=== PATIENT | male | born 1960 | race Caucasian/White ===

== ENCOUNTER 2016-08-01 16:21 | Inpatient (IN) | payer SELFPAY ==
--- NOTE | 2016-08-01 16:22 | EDPHY ---
H & P Time Seen by Provider: 08/01/16 16:22 HPI/ROS: CHIEF COMPLAINT: Vomiting blood HISTORY OF PRESENT ILLNESS: This 56-year-old man drinks alcohol daily and says that he probably drinks more than I should. He has had black stools for the past 3 days and then today was vomiting bright red blood and arrives by EMS with a heart rate of 110 and a blood pressure 100/60. He also has had multiple previous knee surgeries in takes ibuprofen daily. He has a little bit of dizziness. No chest pain or shortness of breath. No abdominal pain. No previous history of varices. 1st blood pressure in the emergency department a 69 systolic. REVIEW OF SYSTEMS: Eye: no change in vision ENT: no sore throat Cardiac: no chest pain or syncope Pulmonary: no cough or SOB Abdomen: HPI Musculoskeletal: no back pain Skin: no rash Neuro: no headache Constitutional: no fever : no urinary symptoms A comprehensive 10 point review of systems is otherwise negative aside from elements mentioned in the history of present illness. PAST MEDICAL HISTORY: Multiple knee surgeries, otherwise as above. Social history: Daily alcohol. Heavy smoker. at bedside at 4:30 p.m. General Appearance: Alert and conversant, cooperative. Eyes: Pale conjunctiva. ENT, Mouth: Normal mucous membranes. Respiratory: Normal respiratory effort, breath sounds equal, lungs are clear to auscultation. Cardiovascular: Regular rate and rhythm. Gastrointestinal: Abdomen is soft and non tender. Neurological: Alert and oriented x3. Normally conversant. Face symmetric, normal movement and sensation in all extremities. Skin: Warm and dry, no rashes. Musculoskeletal: No peripheral edema and no joint swelling. Psychiatric: Not agitated. Emergency Department course/MDM: 2 IVs, i-STAT to check hematocrit, type and screen, IV Protonix, IV normal saline 1 L, EKG. 1642: Initial hemoglobin and hematocrit is 9 and 27. Octreotide drip started empirically. Consult with Gastroenterology and hospitalist. 164: Discussed with Dr. Florentino Corral. 1652: Systolic blood pressure 80/3, plan for repeat hematocrit in 1 hour. DIXIE draper applied for hypothermia. 1726: 2nd hematocrit after some hydration is hemoglobin 12 7 and hematocrit 21 Blood transfusion discussed with the patient and consented. Hypotension, active bleeding, anemia. Constitutional: Initial Vital Signs Temperature (C) 34.3 C L 08/01/16 16:22 Heart Rate 84 08/01/16 16:22 Respiratory Rate 18 08/01/16 16:22 Blood Pressure 79/64 L 08/01/16 16:22 O2 Sat (%) 100 08/01/16 16:22 O2 Delivery Mode Nasal Cannula O2 (L/minute) 2 Allergies/Adverse Reactions: No Known Allergies Allergy (Unverified 08/01/16 16:50) Home Medications: Medication Instructions Recorded Aspirin [Aspirin 81mg (*)] 81 mg PO DAILY 08/01/16 Ibuprofen [Motrin (*)] 800 mg PO TID 08/01/16 Losartan Potassium [Cozaar 25 mg 12.5 mg PO DAILY 08/01/16 (*)] Medical Decision Making - Diagnostics EKG Interpretation: 12-lead EKG interpreted by me; official reading is in trace master. My interpretation is sinus rhythm, rate 81. No acute ischemic changes. Differential Diagnosis: Differential considered including but not limited to hemorrhoids, coagulopathy, upper GI bleed, lower GI bleed, gastroenteritis, ulcer, varices. Critical Care Time: Critical care time spent by me, Dr. Powers, exclusively with the care of this patient was 45 minutes, exclusive of PA or SHANK BURNISHER time and exclusive of separate procedures. The organ system at risk was Gastrointestinal, hemodynamic and I ordered IV Protonix, IV saline resuscitation, external active rewarming, multiple diagnostic studies, discussion with admitting hospitalist physician and plan consultant paper stacker, blood products; to stabilize the patient and prevent worsening of the patient's condition. - Data Points Laboratory Results: Laboratory Results 08/01/16 16:35 08/01/16 16:35 08/01/16 08/01/16 16:35 16:33 WBC 17.09 H 10^3/uL (3.80-9.50) RBC 2.63 L 10^6/uL (4.40-6.38) Hgb 8.7 L g/dL (13.7-17.5) POC Hgb 9.2 L gm/dL (14.5-17.3) Hct 25.6 L % (40.0-51.0) POC Hct 27 L % (42.8-50.6) MCV 97.3 fL (81.5-99.8) MCH 33.1 pg (27.9-34.1) MCHC 34.0 g/dL (32.4-36.7) RDW 13.8 % (11.5-15.2) Plt Count 345 10^3/uL (150-400) MPV 10.2 fL (8.7-11.7) Neut % (Auto) 79.0 H % (39.3-74.2) Lymph % (Auto) 13.5 L % (15.0-45.0) [place] % (Auto) 4.7 % (4.5-13.0) Eos % (Auto) 1.3 % (0.6-7.6) Baso % (Auto) 0.4 % (0.3-1.7) Nucleat RBC Rel Count 0.0 % (0.0-0.2) Absolute Neuts (auto) 13.48 H 10^3/uL (1.70-6.50) Absolute Lymphs (auto) 2.31 10^3/uL (1.00-3.00) Absolute Monos (auto) 0.81 H 10^3/uL (0.30-0.80) Absolute Eos (auto) 0.23 10^3/uL (0.03-0.40) Absolute Basos (auto) 0.07 10^3/uL (0.02-0.10) Absolute Nucleated RBC 0.00 10^3/uL (0-0.01) Immature Gran % 1.1 % (0.0-1.1) Immature Gran # 0.19 H 10^3/uL (0.00-0.10) PT 13.9 SEC (12.0-15.0) INR 1.08 (0.83-1.16) APTT 21.8 L SEC (23.0-38.0) POC Sodium 138 mEq/L (134-144) Sodium 135 mEq/L (134-144) POC Potassium 4.1 mEq/L (3.3-5.0) Potassium 4.5 mEq/L (3.5-5.2) POC Chloride 105 mEq/L (96-108) Chloride 106 mEq/L (97-110) Carbon Dioxide 20 L mEq/l (22-31) Anion Gap 9 mEq/L (8-16) POC BUN 22 mg/dL (7-23) BUN 21 mg/dL (7-23) Creatinine 1.2 mg/dL (0.7-1.3) POC Creatinine 1.2 mg/dL (0.8-1.5) Estimated GFR > 60 Glucose 172 H mg/dL (70-100) POC Glucose 167 H mg/dL (70-100) Calcium 9.4 mg/dL (8.5-10.4) Total Bilirubin 0.6 mg/dL (0.1-1.4) Conjugated Bilirubin 0.4 mg/dL (0.0-0.5) Unconjugated Bilirubin 0.2 mg/dL (0.0-1.1) AST 39 IU/L (17-59) ALT 49 IU/L (21-72) Alkaline Phosphatase 66 IU/L (38-126) Total Protein 6.1 L g/dL (6.3-8.2) Albumin 3.6 g/dL (3.5-5.0) Ethyl Alcohol < 10 mg/dL (0-10) Patient ABO/Rh O POSITIVE Antibody Screen NEGATIVE Crossmatch IS Only See Detail Medications Given: Discontinued Medications Sodium Chloride (Ns) 1,000 mls @ 0 mls/hr IV ONCE ONE PRN Reason: Wide Open Stop: 08/01/16 16:30 Last Admin: 08/01/16 16:30 Dose: 1,000 mls Octreotide Acetate 500 mcg/ (Dextrose) 51 mls @ 5 mls/hr IV EDNOW ONE Stop: 08/02/16 02:53 Last Admin: 08/01/16 17:10 Dose: 51 mls Pantoprazole Sodium 40 mg/ (Sodium Chloride) 100 mls @ 200 mls/hr IV EDNOW ONE Stop: 08/01/16 17:16 Last Admin: 08/01/16 17:11 Dose: 100 mls Ondansetron HCl (Zofran) 4 mg IVP EDNOW ONE Stop: 08/01/16 16:49 Last Admin: 08/01/16 16:30 Dose: 4 mg Pantoprazole Sodium (Protonix) 40 mg IVP EDNOW ONE Stop: 08/01/16 16:48 Last Admin: 08/01/16 16:35 Dose: 40 mg Point of Care Test Results: 08/01/16 16:33 POC Sodium 138 POC Potassium 4.1 POC Chloride 105 POC BUN 22 POC Creatinine 1.2 POC Glucose 167 H Departure - Departure Disposition: [facility] [place] Inpatient Acute Clinical Impression: GIB (gastrointestinal bleeding), Hypothermia Condition: Serious
[2016-08-01] MEDS ORDERED: NS 1,000 ML IV ONE (16:29)
[2016-08-01] MEDS ORDERED: PANTOPRAZOLE SODIUM 80 MG in NS 100 ML IV ONE (16:30)
[2016-08-01] MEDS ORDERED: ONDANSETRON 4 MG/2 ML VIAL ONE ×2 (16:37→18:01)
[2016-08-01] MEDS ORDERED: PANTOPRAZOLE SODIUM 40 MG VIAL ONE ×2 (16:39→16:40)
[2016-08-01] MEDS ORDERED: NICOTINE 21 MG/24 HR PATCH TD ONE (16:40)
[2016-08-01] MEDS ORDERED: OCTREOTIDE ACETATE 500 MCG in D5W 50 ML IV ONE (16:42)
[2016-08-01] MEDS ORDERED: PANTOPRAZOLE SODIUM 40 MG VIAL IVP ONE (16:47)
[2016-08-01] MEDS ORDERED: PANTOPRAZOLE SODIUM 40 MG in NS 100 ML IV ONE (16:47)
[2016-08-01] MEDS ORDERED: ONDANSETRON 4 MG/2 ML VIAL IVP ONE (16:48)
[2016-08-01 16:52] LABS: % IMMATURE GRANULYOCYTES 1.1 % (0.0-1.1); ABSOLUTE IMMATURE GRANULOCYTES 0.19 10^3/uL (0.00-0.10); ADD DIFF? NO; ADD MORPH? NO; ADD SCAN? NO; ATYPICAL LYMPHOCYTE FLAG 0 (0-99); FRAGMENT RBC FLAG 0 (0-99); HEMATOCRIT 25.6 % (40.0-51.0); HEMOGLOBIN 8.7 g/dL (13.7-17.5); LEFT SHIFT FLG 10 (0-99); LIPEMIA HEMOLYSIS FLAG 90 (0-99); MEAN CELL HEMOGLOBIN 33.1 pg (27.9-34.1); MEAN CELL VOLUME 97.3 fL (81.5-99.8); MEAN PLATELET VOLUME 10.2 fL (8.7-11.7); PLATELET CLUMPS FLAG 10 (0-99); PLATELET COUNT 345 10^3/uL (150-400); RED BLOOD CELL COUNT 2.63 10^6/uL (4.40-6.38); RED CELL DISTRIBUTION WIDTH 13.8 % (11.5-15.2)
--- NOTE | 2016-08-01 16:57 | CPEKG ---
Heart Rate: 81 RR Interval: 741 P-R Interval: 116 QRSD Interval: 106 QT Interval: 392 QTC Interval: 455 P [place]: 72 QRS [place]: 77 T Wave [place]: 70 EKG Severity - NORMAL ECG - EKG Impression: SINUS RHYTHM Electronically Signed By: Rodney Powers 01-Aug-2016 17:10:57
[2016-08-01 17:03] LABS: APTT 21.8 SEC (23.0-38.0); INR 1.08 (0.83-1.16); PROTIME(PATIENT) 13.9 SEC (12.0-15.0)
[2016-08-01 17:15] VITALS: TEMP 97.5
[2016-08-01 17:18] LABS: ALANINE AMINOTRANSFERASE 49 IU/L (21-72); ALBUMIN 3.6 g/dL (3.5-5.0); ALKALINE PHOSPHATASE 66 IU/L (38-126); ANION GAP 9 mEq/L (8-16); ASPARTATE AMINOTRANSFERASE 39 IU/L (17-59); BILIRUBIN,TOTAL 0.6 mg/dL (0.1-1.4); BILIRUBIN-CONJUGATED 0.4 mg/dL (0.0-0.5); BILIRUBIN-UNCONJUGATED 0.2 mg/dL (0.0-1.1); CALCIUM 9.4 mg/dL (8.5-10.4); CARBON DIOXIDE 20 mEq/l (22-31); CHLORIDE 106 mEq/L (97-110); CREATININE 1.2 mg/dL (0.7-1.3); ETHANOL SERUM < 10 mg/dL (0-10); GLOMERULAR FILTRATION RATE > 60; GLUCOSE 172 mg/dL (70-100); POTASSIUM 4.5 mEq/L (3.5-5.2); SODIUM 135 mEq/L (134-144); TOTAL PROTEIN 6.1 g/dL (6.3-8.2)
[2016-08-01] MEDS ORDERED: ALBUMIN 5% 250 ML BOTTLE IV ONE (17:20)
[2016-08-01] MEDS ORDERED: fentaNYL 100 MCG/2 ML INJ ONE (17:20)
[2016-08-01] MEDS ORDERED: MIDAZOLAM 2 MG/2 ML VIAL ONE ×2 (17:50→18:34)
[2016-08-01] MEDS ORDERED: ETOMIDATE 20 MG/10 ML VIAL ONE (18:00)
[2016-08-01] MEDS ORDERED: SUCCINYLCHOLINE CHLORIDE*ANESTHESIA ONLY*200 MG/10 ML SYR IVP ONE (18:00)
[2016-08-01] MEDS ORDERED: ROCURONIUM 50 MG/5 ML VIAL ONE (18:00)
[2016-08-01] MEDS ORDERED: CALCIUM CHLORIDE 1 GM/10 ML INJ ONE (18:01)
[2016-08-01] MEDS ORDERED: PROPOFOL 200 MG/20 ML VIAL ONE (18:03)
[2016-08-01] MEDS ORDERED: SUGAMMADEX SODIUM 200 MG/2 ML VIAL IVP ONE (18:23)
[2016-08-01] MEDS ORDERED: HYDROmorphONE/DILAUDID 1 MG/ML SYR IVP PRN (18:24)
[2016-08-01] MEDS ORDERED: PROMETHAZINE HCL 25 MG/ML INJ IVP PRN (18:24)
[2016-08-01] MEDS ORDERED: ONDANSETRON 4 MG/2 ML VIAL IVP PRN (18:24)
[2016-08-01] MEDS ORDERED: LORazepam 2 MG/ML INJ IVP PRN (18:24)
[2016-08-01] MEDS ORDERED: ONDANSETRON DISINTEGRATING 4 MG TAB PO PRN (18:24)
[2016-08-01] MEDS ORDERED: ACETAMINOPHEN 325 MG TAB PO PRN (18:24)
--- NOTE | 2016-08-01 18:31 | SOAPPROG ---
SOAP Progress Note Assessment/Plan: Assessment:Emergency EGD for UGI bleed shows 10mm on incisura, with active bleeding. Hemostasis achieved with BICAP, Epinephrine inj and clips. No varies or portal gastropathy. CLOtest taken. Plan:D/C Octreotide. Continue IV PPI. CL diet. Serial H/H's. Repeat EGD for signs of active rebleeding. 08/01/16 18:30 Objective: Vital Signs Temp Pulse Resp BP Pulse Ox 36.5 C 92 16 96/55 L 100 08/01/16 17:15 08/01/16 17:15 08/01/16 17:15 08/01/16 17:15 08/01/16 17:15 PT 13.9 SEC (12.0-15.0) 08/01/16 16:35 INR 1.08 (0.83-1.16) 08/01/16 16:35 ICD10 Worksheet Patient Problems: Problems Problem Status Diagnosed GIB (gastrointestinal bleeding) Acute Hypothermia Acute
--- NOTE | 2016-08-01 18:38 | PDGENHP ---
History and Physical - Chief Complaint dark stools/vomiting blood - History of Present Illness 56 yo M with PMH of chronic knee pain s/p multiple knee surgeries on chronic nsaids as well as daily alcohol use which he describes as "too much" admitted with several days of dark stools followed today by vomiting blood. At the time of my evaluation patient is quite somnolent s/p endoscopy procedure and therefore this history is limited by his somnolence and largely obtained from ER report. He denies any current complaints. He has had one episode of vomiting post endoscopy. History Information - Allergies/Home Medication List Allergies/Adverse Reactions: No Known Allergies Allergy (Unverified 08/01/16 16:50) Home Medications: Aspirin [Aspirin 81mg (*)] 81 mg PO DAILY 08/01/16 [Last Taken 08/01/16] Ibuprofen [Motrin (*)] 800 mg PO TID 08/01/16 [Last Taken 07/31/16] Losartan Potassium [Cozaar 25 mg (*)] 12.5 mg PO DAILY 08/01/16 [Last Taken ] I have personally reviewed and updated: family history, medical history, social history, surgical history - Past Medical History hypertension Additional medical history: alcohol abuse. chronic nsaid use - Surgical History Additional surgical history: multiple knee surgeries - Family History Positive for: non-pertinent - Social History Smoking Status: Current every day smoker Alcohol Use: Heavy Drug Use: None Review of Systems ROS: 10pt was reviewed & negative except for what was stated in HPI & below Physical Exam Temp Pulse Resp BP Pulse Ox 36.4 C 87 16 117/59 L 100 08/01/16 17:30 08/01/16 17:30 08/01/16 17:30 08/01/16 17:30 08/01/16 17:30 O2 (L/minute) 2 Constitutional: no apparent distress, appears nourished Eyes: PERRL Ears, Nose, Mouth, Throat: moist mucous membranes, hearing normal Cardiovascular: regular rate and rhythym, no murmur, rub, or gallop Respiratory: no respiratory distress, no rales or rhonchi Gastrointestinal: normoactive bowel sounds, soft, non-tender abdomen Genitourinary: no bladder tenderness Skin: warm, normal color Musculoskeletal: full muscle strength Neurologic: other (somnolent, minimally interactive) Psychiatric: not anxious, not encephalopathic Lab Data & Imaging Review 08/01/16 16:35 08/01/16 16:35 WBC 17.09 10^3/uL (3.80-9.50) H 08/01/16 16:35 RBC 2.63 10^6/uL (4.40-6.38) L 08/01/16 16:35 Hgb 8.7 g/dL (13.7-17.5) L 08/01/16 16:35 POC Hgb 7.1 gm/dL (14.5-17.3) L 08/01/16 17:19 Hct 25.6 % (40.0-51.0) L 08/01/16 16:35 POC Hct 21 % (42.8-50.6) L 08/01/16 17:19 MCV 97.3 fL (81.5-99.8) 08/01/16 16:35 MCH 33.1 pg (27.9-34.1) 08/01/16 16:35 MCHC 34.0 g/dL (32.4-36.7) 08/01/16 16:35 RDW 13.8 % (11.5-15.2) 08/01/16 16:35 Plt Count 345 10^3/uL (150-400) 08/01/16 16:35 MPV 10.2 fL (8.7-11.7) 08/01/16 16:35 Neut % (Auto) 79.0 % (39.3-74.2) H 08/01/16 16:35 Lymph % (Auto) 13.5 % (15.0-45.0) L 08/01/16 16:35 [place] % (Auto) 4.7 % (4.5-13.0) 08/01/16 16:35 Eos % (Auto) 1.3 % (0.6-7.6) 08/01/16 16:35 Baso % (Auto) 0.4 % (0.3-1.7) 08/01/16 16:35 Nucleat RBC Rel Count 0.0 % (0.0-0.2) 08/01/16 16:35 Absolute Neuts (auto) 13.48 10^3/uL (1.70-6.50) H 08/01/16 16:35 Absolute Lymphs (auto) 2.31 10^3/uL (1.00-3.00) 08/01/16 16:35 Absolute Monos (auto) 0.81 10^3/uL (0.30-0.80) H 08/01/16 16:35 Absolute Eos (auto) 0.23 10^3/uL (0.03-0.40) 08/01/16 16:35 Absolute Basos (auto) 0.07 10^3/uL (0.02-0.10) 08/01/16 16:35 Absolute Nucleated RBC 0.00 10^3/uL (0-0.01) 08/01/16 16:35 Immature Gran % 1.1 % (0.0-1.1) 08/01/16 16:35 Immature Gran # 0.19 10^3/uL (0.00-0.10) H 08/01/16 16:35 PT 13.9 SEC (12.0-15.0) 08/01/16 16:35 INR 1.08 (0.83-1.16) 08/01/16 16:35 APTT 21.8 SEC (23.0-38.0) L 08/01/16 16:35 POC Sodium 137 mEq/L (134-144) 08/01/16 17:19 Sodium 135 mEq/L (134-144) 08/01/16 16:35 POC Potassium 4.4 mEq/L (3.3-5.0) 08/01/16 17:19 Potassium 4.5 mEq/L (3.5-5.2) 08/01/16 16:35 POC Chloride 107 mEq/L (96-108) 08/01/16 17:19 Chloride 106 mEq/L (97-110) 08/01/16 16:35 Carbon Dioxide 20 mEq/l (22-31) L 08/01/16 16:35 Anion Gap 9 mEq/L (8-16) 08/01/16 16:35 POC BUN 24 mg/dL (7-23) H 08/01/16 17:19 BUN 21 mg/dL (7-23) 08/01/16 16:35 Creatinine 1.2 mg/dL (0.7-1.3) 08/01/16 16:35 POC Creatinine 1.2 mg/dL (0.8-1.5) 08/01/16 17:19 Estimated GFR > 60 08/01/16 16:35 Glucose 172 mg/dL (70-100) H 08/01/16 16:35 POC Glucose 135 mg/dL (70-100) H 08/01/16 17:19 Calcium 9.4 mg/dL (8.5-10.4) 08/01/16 16:35 Total Bilirubin 0.6 mg/dL (0.1-1.4) 08/01/16 16:35 Conjugated Bilirubin 0.4 mg/dL (0.0-0.5) 08/01/16 16:35 Unconjugated Bilirubin 0.2 mg/dL (0.0-1.1) 08/01/16 16:35 AST 39 IU/L (17-59) 08/01/16 16:35 ALT 49 IU/L (21-72) 08/01/16 16:35 Alkaline Phosphatase 66 IU/L (38-126) 08/01/16 16:35 Total Protein 6.1 g/dL (6.3-8.2) L 08/01/16 16:35 Albumin 3.6 g/dL (3.5-5.0) 08/01/16 16:35 Ethyl Alcohol < 10 mg/dL (0-10) 08/01/16 16:35 Patient ABO/Rh O POSITIVE 08/01/16 16:35 Antibody Screen NEGATIVE 08/01/16 16:35 Crossmatch IS Only See Detail 08/01/16 16:35 Visualized and Interpreted EKG results: Yes EKG Interpretation: Positive for: normal sinsus rhythm Assessment & Plan Assessment: 56 yo M with hx of etoh abuse as well as daily nsaid use presenting with GI bleed 2/2 # upper GI bleed: taken emergently to endoscopy and found to have bleeding gastric ulcer w/o e/o varices. w/o evidence of continued bleeding s/p intervention. Continued on IV PPI, dc octreotide gtt, diet advanced to clears. Will trend h/h overnight. No more NSAIDS or asa going forward. If stable overnight can transfer out of ICU and likely home day after that so long as no e /o further bleeding. # acute blood loss anemia: in setting of above, PRBCs ordered for hgb of 7 and rapid blood loss # hypotension: 2/2 acute blood loss, has been fluid responsive and bp now normalized, will hold losartan # hyperglycemia: likely stress response, will trend # etoh abuse: without e/o varices as above, LFTs and coags essentially wnl, will monitor for s/s of withdrawal # tobacco dependency: nicotine patch, cessation counseling # dispo: IP, high risk presenting issues will require > 48 hours stay for eval/ mgmt of above Patient new to my care. Old records reviewed and summarized as above. Care plan reviewed with ER doctor and GI.
[2016-08-01] MEDS: NS 1,000 ML IV SCH (19:02)
[2016-08-01 19:10] LABS: HEMOGLOBIN 9.2 g/dL (13.7-17.5)
--- NOTE | 2016-08-01 20:24 | GPN ---
[f rep st] PROCEDURE NOTE DATE OF PROCEDURE: 08/01/2016 PROCEDURE: Gastroscopy with BICAP cauterization, endoclipping, and biopsy. INDICATIONS: The patient is a 56-year-old male who takes large amounts of nonsteroidals and also has 3 drinks almost daily, who presents with several days of melena and then hematemesis today with hemoglobin in the 6s after hydration. Gastroscopy is being performed urgently to evaluate and treat. DESCRIPTION OF PROCEDURE: After proper consent was obtained, patient was placed in left lateral decubitus position, was intubated and placed under general anesthesia. Video gastroscope was introduced through the mouth, down the esophagus, into the stomach, past the pylorus, into portion duodenum. FINDINGS: 1. The esophagus was normal with no evidence of varices. 2. The fundus was normal. 3. On the incisura, there was a 10 mm gastric ulcer with a smooth circular edge that had fresh adherent clot which when removed allowed for active bleeding. The bleeding was stopped with a combination of BICAP cautery, epinephrine injection, and multiple Endo clips, although the ulcer could not be fully approximated with them. 4. At the end of the procedure, no active bleeding was noted. 5. The duodenum appeared normal. 6. Biopsies were taken to rule out H pylori. At this point, instrument was removed, patient tolerated procedure well, was taken to the recovery room in stable condition. RECOMMENDATIONS: 1. Okay to DC octreotide. 2. Continue IV proton pump inhibitors and serial H and Hs. 3. Clear liquid diet. 4. EGD can be repeated if there are signs of active rebleeding. 5. If H pylori is present, I would treat accordingly. 6. When patient is discharged home, he will need 12 weeks of proton pump inhibitors and then repeat EGD as an outpatient to confirm full healing. /[id number]/MODL MTDD
[2016-08-01] MEDS: PANTOPRAZOLE SODIUM 40 MG in NS 100 ML IV SCH (20:40)
[2016-08-01 22:29] LABS: HEMATOCRIT 24.9 % (40.0-51.0); HEMOGLOBIN 8.5 g/dL (13.7-17.5)
[2016-08-01] MEDS: oxyCODONE IR 5 MG TAB PO PRN (23:20)
[2016-08-02] MEDS: NS 1,000 ML IV SCH (02:12)
[2016-08-02 02:26] LABS: HEMATOCRIT 21.1 % (40.0-51.0); HEMOGLOBIN 7.1 g/dL (13.7-17.5)
[2016-08-02 06:19] LABS: % IMMATURE GRANULYOCYTES 0.6 % (0.0-1.1); ABSOLUTE IMMATURE GRANULOCYTES 0.05 10^3/uL (0.00-0.10); ADD DIFF? NO; ADD MORPH? NO; ADD SCAN? NO; ATYPICAL LYMPHOCYTE FLAG 10 (0-99); FRAGMENT RBC FLAG 0 (0-99); HEMATOCRIT 21.3 % (40.0-51.0); LEFT SHIFT FLG 0 (0-99); LIPEMIA HEMOLYSIS FLAG 80 (0-99); MEAN CELL HEMOGLOBIN CONCENTR. 32.9 g/dL (32.4-36.7); MEAN CELL VOLUME 97.3 fL (81.5-99.8); MEAN PLATELET VOLUME 10.5 fL (8.7-11.7); PLATELET CLUMPS FLAG 60 (0-99); PLATELET COUNT 184 10^3/uL (150-400); RED BLOOD CELL COUNT 2.19 10^6/uL (4.40-6.38); RED CELL DISTRIBUTION WIDTH 13.8 % (11.5-15.2)
[2016-08-02 07:07] LABS: ANION GAP 6 mEq/L (8-16); CALCIUM 8.2 mg/dL (8.5-10.4); CARBON DIOXIDE 20 mEq/l (22-31); CHLORIDE 110 mEq/L (97-110); CREATININE 0.9 mg/dL (0.7-1.3); GLOMERULAR FILTRATION RATE > 60; GLUCOSE 129 mg/dL (70-100); MAGNESIUM 1.5 mg/dL (1.6-2.3); POTASSIUM 4.4 mEq/L (3.5-5.2); SODIUM 136 mEq/L (134-144)
[2016-08-02] MEDS: PANTOPRAZOLE SODIUM 40 MG in NS 100 ML IV SCH ×2 (10:00→20:29)
--- NOTE | 2016-08-02 12:14 | SOAPPROG ---
SOAP Progress Note Assessment/Plan: Assessment:Emergency EGD for UGI bleed shows 10mm on incisura, with active bleeding. Hemostasis achieved with BICAP, Epinephrine inj and clips. No varies or portal gastropathy. CLOtest taken. Plan:D/C Octreotide. Continue IV PPI. CL diet. Serial H/H's. Repeat EGD for signs of active rebleeding. 08/01/16 18:30 08/02/16 12:12 No evidence of bleeding overnight. Would observe through tomorrow morning, if stable could go home on 12 weeks of Protonix 40 mg qd or Prilosec 40 mg qd with repeat EGD after that to confirm healing. Patient to avoid ETOH and NSAIDs. If patient must take NSAIDs then he will need to be on PPIs indefinitely. Await CLOtest results and I will treat for HP if present. Objective: Vital Signs Temp Pulse Resp BP Pulse Ox 36.9 C 80 20 134/72 H 96 08/02/16 08:00 08/02/16 12:00 08/02/16 12:00 08/02/16 12:00 08/02/16 12:00 Laboratory Results 08/02/16 06:05 08/02/16 06:05 08/01/16 08/02/16 08/03/16 05:59 05:59 05:59 Intake Total 3849 1400 Output Total 3300 600 Balance 549 800 PT 13.9 SEC (12.0-15.0) 08/01/16 16:35 INR 1.08 (0.83-1.16) 08/01/16 16:35 ICD10 Worksheet Patient Problems: Problems Problem Status Diagnosed GIB (gastrointestinal bleeding) Acute Hypothermia Acute
--- NOTE | 2016-08-02 13:56 | GCON ---
[f rep st] CONSULTATION CRITICAL CARE CONSULT DATE OF CONSULTATION: 08/02/2016 HISTORY OF PRESENT ILLNESS: The patient is a 56-year-old male with a history of chronic knee pain wh o takes nonsteroidal anti-inflammatory drugs daily as well as gin and tonic daily. He was in his [facility] state of health until yesterday, and he developed hematemesis and came to the emergency department , where he underwent emergent endoscopy, and was found to have a gastric ulcer. I believe this was c auterized, and he was transfused blood for low hematocrit, and watched in the ICU overnight. By this morning, his vital signs were quite stable, and he feels well. He has mild abdominal pain bu t no further emesis and no melena. He denies ever having had issues of alcohol withdrawal in the pas t, though feels that his alcohol consumption may be too much and that he was using alcohol "as a crut ch." PAST MEDICAL HISTORY: Includes hypertension. PAST SURGICAL HISTORY: Multiple knee surgeries in the past and chronic pain. SOCIAL HISTORY: He is a current every day smoker. Alcohol use is frequent, but denies recreational drug use. FAMILY HISTORY: Noncontributory. CURRENT MEDICATIONS: Include Tylenol, Zofran, pantoprazole, Phenergan, normal saline. PHYSICAL EXAMINATION: VITAL SIGNS: He was afebrile. Heart rate 82, respirations 17, blood pressure 134/72, with an oxygen saturation of 96% on room air. GENERAL: He was awake and alert. No apparen t distress. Able to speak in full sentences without using accessory muscles for breathing. HEENT: Pupils were equally round, reactive to light, nonicteric, and noninjected. Mucous membranes moist wi thout, erythema, or exudate. Dentition was poor. He is missing his dentures. NECK: Supple without adenopathy or jugular vein distention. LUNGS: Breath sounds were clear to auscultation bilaterally without wheezes, rubs or rales. HEART: A regular rate and rhythm without murmurs, rubs, gallops. ABDOMEN: Mildly tender diffusely but normoactive bowel tones. No hepatosplenomegaly. No pulsatile masses. EXTREMITIES: No clubbing, cyanosis, or edema. NEUROLOGIC: Cursory neurological exam nonfo leila including cranial nerves, deep tendon reflexes. SKIN: Warm and dry without evidence of rash. LABORATORY DATA: His white count was 7.7 today, hematocrit was 21, and hemoglobin 7.1, platelets of 184. INR yesterday was normal at 1.08. Basic metabolic panel was normal, save for a low bicarb of 2 0. Magnesium is low at 1.5 today. ASSESSMENT AND PLAN: Upper gastrointestinal bleeding, likely due to the combination of alcohol as we ll as nonsteroidal anti-inflammatory medications. He seemed to understand this concept quite well. He was worried about taking Tylenol because of his drinking habits, but with normal LFTs that were me asured yesterday, including an albumin of 3.6, I said that Tylenol would be a reasonable alternative as opposed to ibuprofen, and he could take that on a scheduled basis as needed. In either case, he s eems to be doing well from that perspective. It would certainly be reasonable to give him a unit of blood since his hematocrit is somewhat low in the setting of an acute gastrointestinal bleed. /[id number]/MODL
--- NOTE | 2016-08-02 15:52 | HOSPPROG ---
Hospitalist Progress Note Assessment/Plan: 56 yo M with hx of etoh abuse and chronic back pain with chronic nsaid use presenting with gi bleed # upper GI bleed: 2/2 bleeding peptic ulcer , sp cautery and clips, likely related to nsaid use and etoh abuse. continue ppi, diet advanced. # acute blood loss anemia: related to above, h/h slightly lower again today and will tx 2 units prbcs and continue to monitor # etoh abuse: without e/o varices on egd, no e/o withdrawal # back pain: no more nsaids, pain essentially controlled currently, will need to review other med options after dc # dispo: IP status, high risk requiring ICU stay Subjective: no significant overnight events, patient feeling relatively well currently, slight nausea, no vomiting, no abd pain Objective: Vital Signs Temp Pulse Resp BP Pulse Ox 36.9 C 82 17 134/72 H 96 08/02/16 12:00 08/02/16 12:00 08/02/16 12:00 08/02/16 12:00 08/02/16 12:00 Laboratory Results 08/02/16 06:05 08/02/16 06:05 08/01/16 08/02/16 08/03/16 05:59 05:59 05:59 Intake Total 3849 1400 Output Total 3300 600 Balance 549 800 PT 13.9 SEC (12.0-15.0) 08/01/16 16:35 INR 1.08 (0.83-1.16) 08/01/16 16:35 awake alert nad anicteirc op clear rrr no mrg cta b soft nt nd no cce warm dry well perfused oriented appropriate ICD10 Worksheet Patient Problems: Problems Problem Status Diagnosed GIB (gastrointestinal bleeding) Acute Hypothermia Acute
[2016-08-02] MEDS ORDERED: MAGNESIUM SULF 1 GM/DEXTROSE 100 ML IV ONE (15:54)
[2016-08-02] MEDS ORDERED: PROTOCOL MAGNESIUM 1 DOSE IV PRN ×2 (16:29→17:00)
[2016-08-02 18:16] LABS: HEMATOCRIT 23.4 % (40.0-51.0)
[2016-08-02] MEDS: oxyCODONE IR 5 MG TAB PO PRN (19:32)
[2016-08-03 03:33] LABS: % IMMATURE GRANULYOCYTES 0.4 % (0.0-1.1); ABSOLUTE IMMATURE GRANULOCYTES 0.03 10^3/uL (0.00-0.10); ADD DIFF? NO; ADD MORPH? NO; ADD SCAN? NO; ATYPICAL LYMPHOCYTE FLAG 10 (0-99); FRAGMENT RBC FLAG 0 (0-99); HEMOGLOBIN 7.9 g/dL (13.7-17.5); LEFT SHIFT FLG 0 (0-99); LIPEMIA HEMOLYSIS FLAG 90 (0-99); MEAN CELL HEMOGLOBIN 33.1 pg (27.9-34.1); MEAN CELL HEMOGLOBIN CONCENTR. 34.3 g/dL (32.4-36.7); MEAN CELL VOLUME 96.2 fL (81.5-99.8); MEAN PLATELET VOLUME 10.3 fL (8.7-11.7); PLATELET CLUMPS FLAG 0 (0-99); PLATELET COUNT 188 10^3/uL (150-400); RED BLOOD CELL COUNT 2.39 10^6/uL (4.40-6.38); RED CELL DISTRIBUTION WIDTH 13.9 % (11.5-15.2)
[2016-08-03 04:06] LABS: ANION GAP 3 mEq/L (8-16); CALCIUM 8.5 mg/dL (8.5-10.4); CARBON DIOXIDE 23 mEq/l (22-31); CHLORIDE 112 mEq/L (97-110); CREATININE 0.8 mg/dL (0.7-1.3); GLOMERULAR FILTRATION RATE > 60; GLUCOSE 96 mg/dL (70-100); MAGNESIUM 1.8 mg/dL (1.6-2.3); POTASSIUM 3.9 mEq/L (3.5-5.2); SODIUM 138 mEq/L (134-144)
[2016-08-03] MEDS ORDERED: MAGNESIUM SULF 1 GM/DEXTROSE 100 ML IV ONE (04:17)
[2016-08-03] MEDS: PANTOPRAZOLE SODIUM 40 MG in NS 100 ML IV SCH (08:23)
[2016-08-03 08:26] VITALS: BP 146/80; PULSE 67; RESP 16; TEMP 98; O2SAT 99
[2016-08-03] MEDS: oxyCODONE IR 5 MG TAB PO PRN (08:29)
--- NOTE | 2016-08-03 18:04 | GDS ---
[f rep st] DISCHARGE SUMMARY DISCHARGE DIAGNOSES: Include: 1. Acute upper gastrointestinal bleed, secondary to peptic ulcer. 2. Anemia, secondary to acute blood loss. 3. Alcohol abuse. 4. Chronic back pain with nonsteroidal antiinflammatory drug use. 5. Hypertension. HISTORY OF PRESENT ILLNESS: A 56-year-old male, who presented on 08/01/2016 with complaints of dark stools and vomiting blood. For details of patient's initial presentation, please see the history and physical dated 08/01/2016. CONSULTATIVE SERVICES: Include Gastroenterology, Dr. Good. PROCEDURES: 08/01/2016, patient had an EGD that showed a 10 mm gastric ulcer that was treated with c autery, epinephrine injection, and Endo clips. HOSPITAL COURSE BY ISSUE: 1. Acute upper GI bleed: Patient presented with bloody vomiting and melena, had severe anemia requi ring 2-unit packed red blood cell transfusion, underwent intervention through EGD, and maintained hi s H and H postprocedure. He is being discharged on b.i.d. PPI for 12 weeks. He will follow with Dr. Good in 3 months' time for repeat EGD. We have given him strict recommendations to limit alcohol intake and avoid NSAIDs. 2. Anemia, secondary to acute blood loss: Patient is status post transfusion, maintaining his H and H. 3. Hypertension: Uses losartan 12.5. This will be continued at disposition. He is to follow in e outpatient setting with his primary care physician. MEDICATIONS AT THE TIME OF DISPOSITION: Please reference medication reconciliation printed on 2016. FOLLOWUP APPOINTMENTS: Include with his PCP next week for a lab check and in 3 months' time for repe at EGD with Dr. Good. PENDING STUDIES AT THE TIME OF THIS DICTATION: None. /[id number]/MODL
== END 2016-08-03 10:31 | disposition home or self-care (01) | DRG 327 ==
LOC: EDUNIT# → F2N 18:36
PROVIDERS: ADMIT Internal Medicine; ATTEND Hospitalist
PROC: 30233N1 Transfusion of Nonautologous Red Blood Cells into Peripheral Vein, Percutaneous Approach (ICD-10-PCS; 2016-08-01)
PROC: 0DL Gastrointestinal System, Occlusion (ICD-10-PCS; principal; 2016-08-01 17:45)
PROC: 0DB68ZX Excision of Stomach, Via Natural or Artificial Opening Endoscopic, Diagnostic (ICD-10-PCS; principal; 2016-08-01 17:45)
PROC: 0D568ZZ Destruction of Stomach, Via Natural or Artificial Opening Endoscopic (ICD-10-PCS; principal; 2016-08-01 17:45)
DX: K25.0 Acute gastric ulcer with hemorrhage (principal); D62 Acute posthemorrhagic anemia; F17.210 Nicotine dependence, cigarettes, uncomplicated; F10.10 Alcohol abuse, uncomplicated; M54.9 Dorsalgia, unspecified; I10 Essential (primary) hypertension; Z79.1 Long term (current) use of non-steroidal anti-inflammatories (NSAID)
CPT/HCPCS: 82947-QW; 96365; G0480; J0330; J2250; J2353; J2405; J2704; J3010; J3475; P9016; P9041

== ENCOUNTER 2016-08-22 17:29 | Inpatient (IN) | payer SELFPAY ==
[2016-08-22] MEDS ORDERED: NS 1,000 ML IV ONE (18:20)
[2016-08-22] MEDS ORDERED: HYDROmorphONE/DILAUDID 1 MG/ML SYR ONE ×2 (18:23→21:23)
[2016-08-22] MEDS ORDERED: ONDANSETRON 4 MG/2 ML VIAL ONE (18:35)
--- NOTE | 2016-08-22 18:41 | EDPHY ---
HPI/HX/ROS/PE/MDM Narrative: CHIEF COMPLAINT: Abdominal pain HPI: The patient is a 56 y/o male arriving with his friend complaining of slowly progressing abdominal pain since , 2 days ago, after mild trauma to his abdomen. He has a recent history of ICU admission 2 weeks ago for a bleeding ulcer that required a 2 unit transfusion. he describes falling into a wall hitting his stomach and slowly developing worsening central abdominal pain since then. He reports it now radiates to both sides of his back as well. He had one episode of vomiting today and notes he has not had a bowel movement, which is abnormal for him. He denies fever but endorses chills. No obvious alleviating factors. REVIEW OF SYSTEMS: Aside from elements discussed in the HPI, a comprehensive 10-point review of systems was reviewed and is negative. PMH: Upper GI bleed and anemia secondary to peptic ulcer and blood loss on , alcohol abuse, chronic back pain with NSAID use, hypertension SOCIAL HISTORY: Friend at bedside. Alcohol abuse. Prior medical records reviewed including admission 08/01/16 for upper GI bleed. PHYSICAL EXAM: General:Patient is alert, in no acute distress. ENT:Eyes are normal to inspection. ENT inspection normal. Neck: Normal inspection. Full range of motion. Respiratory:No respiratory distress. Breath sounds normal bilaterally. Cardiovascular: Regular rate and rhythm. Strong peripheral pulses. Normal cap refill. Abdomen:The abdomen has diffuse moderate tenderness in all four quadrants. There are no peritoneal signs. There are normal bowel sounds. Back: Normal to inspection. No tenderness to palpation. Skin: Normal color. No rash. Warm and dry. Extremities: Normal appearance. Full range of motion. Neuro: Oriented x3. Normal motor function. Normal sensory function. ED Course: IV established. Labs drawn including CBC, CHEM, PTPTT, lipase, LFTs. Abdominal x -ray ordered. 1L IV NS and 1mg IV Dilaudid administered. Study: Abdominal x-ray Indication: Pain Results: Abdominal x-ray was obtained. The results of the study are negative for acute localizing features. The study was read by the radiologist, Dr. Bello. I viewed the images myself on the PACS system. 1999: Lipase elevated. Discussed findings with the patient. Abdominal US ordered. 2006: Spoke with hospitalist service. Dr. Nuñez accepts admission for pancreatitis. Study: Ultrasound of the: Abdomen Indication: Pain Results: US scan of the abdomen was obtained. The results of the study are The study was read by the radiologist, . I viewed the images myself on the PACS system. MDM: This patient presents with diffuse abdominal pain in the setting of recent EGD and bleeding gastric ulcer. His workup indicates acute pancreatitis. There is no sign of necrosis, severe sepsis, acute coronary syndrome, bowel obstruction or bowel perforation. The patient has a heavy alcohol history and this is likely the etiology. The patient requires admission the hospital for IV hydration, bowel rest and further workup. - Data Points Laboratory Results: Laboratory Results 08/22/16 18:33 08/22/16 18:33 08/22/16 08/22/16 08/22/16 18:33 18:33 18:33 WBC 15.86 10^3/uL H 10^3/uL (3.80-9.50) RBC 4.24 10^6/uL L 10^6/uL (4.40-6.38) Hgb 13.4 g/dL L g/dL (13.7-17.5) Hct 39.5 % L % (40.0-51.0) MCV 93.2 fL fL (81.5-99.8) MCH 31.6 pg pg (27.9-34.1) MCHC 33.9 g/dL g/dL (32.4-36.7) RDW 13.1 % % (11.5-15.2) Plt Count 446 10^3/uL H 10^3/uL (150-400) MPV 9.9 fL fL (8.7-11.7) Neut % (Auto) 88.3 % H % (39.3-74.2) Lymph % (Auto) 5.1 % L % (15.0-45.0) [place] % (Auto) 5.0 % % (4.5-13.0) Eos % (Auto) 0.7 % % (0.6-7.6) Baso % (Auto) 0.3 % % (0.3-1.7) Nucleat RBC Rel Count 0.0 % % (0.0-0.2) Absolute Neuts (auto) 14.01 10^3/uL H 10^3/uL (1.70-6.50) Absolute Lymphs (auto) 0.81 10^3/uL L 10^3/uL (1.00-3.00) Absolute Monos (auto) 0.79 10^3/uL 10^3/uL (0.30-0.80) Absolute Eos (auto) 0.11 10^3/uL 10^3/uL (0.03-0.40) Absolute Basos (auto) 0.05 10^3/uL 10^3/uL (0.02-0.10) Absolute Nucleated RBC 0.00 10^3/uL 10^3/uL (0-0.01) Immature Gran % 0.6 % % (0.0-1.1) Immature Gran # 0.09 10^3/uL 10^3/uL (0.00-0.10) PT 12.0 SEC SEC (12.0-15.0) INR 0.90 (0.83-1.16) APTT 24.2 SEC SEC (23.0-38.0) Sodium 132 mEq/L L mEq/L (134-144) Potassium 3.6 mEq/L mEq/L (3.5-5.2) Chloride 99 mEq/L mEq/L (97-110) Carbon Dioxide 19 mEq/l L mEq/l (22-31) Anion Gap 14 mEq/L mEq/L (8-16) BUN 8 mg/dL mg/dL (7-23) Creatinine 0.8 mg/dL mg/dL (0.7-1.3) Estimated GFR > 60 Glucose 113 mg/dL H mg/dL (70-100) Calcium 10.9 mg/dL H mg/dL (8.5-10.4) Phosphorus 3.2 mg/dL mg/dL (2.5-4.5) Total Bilirubin 0.8 mg/dL mg/dL (0.1-1.4) Conjugated Bilirubin 0.6 mg/dL H mg/dL (0.0-0.5) Unconjugated Bilirubin 0.2 mg/dL mg/dL (0.0-1.1) AST 27 IU/L IU/L (17-59) ALT 30 IU/L IU/L (21-72) Alkaline Phosphatase 94 IU/L IU/L (38-126) Total Protein 7.6 g/dL g/dL (6.3-8.2) Albumin 4.7 g/dL g/dL (3.5-5.0) Lipase 6331.0 IU/L H IU/L (23-300) Medications Given: Discontinued Medications Hydromorphone HCl (Dilaudid) 1 mg IVP EDNOW ONE Stop: 08/22/16 19:01 Last Admin: 08/22/16 19:30 Dose: 1 mg Sodium Chloride (Ns) 1,000 mls @ 0 mls/hr IV ONCE ONE PRN Reason: Wide Open Stop: 08/22/16 18:21 Last Admin: 08/22/16 19:27 Dose: 1,000 mls General Time Seen by Provider: 08/22/16 18:16 Initial Vital Signs: Initial Vital Signs Temperature (C) 36.4 C 08/22/16 17:35 Heart Rate 98 08/22/16 17:35 Respiratory Rate 18 08/22/16 17:35 Blood Pressure 162/130 H 08/22/16 17:35 O2 Sat (%) 98 08/22/16 17:35 O2 Delivery Mode Room Air Allergies/Adverse Reactions: No Known Allergies Allergy (Verified 08/22/16 17:35) Home Medications: Medication Instructions Recorded Aspirin [Aspirin 81mg (*)] 81 mg PO DAILY 08/01/16 Acetaminophen [Tylenol 325mg (*)] 650 mg PO Q4HRS PRN #0 tab 08/03/16 Pantoprazole Sodium [Protonix 40mg 40 mg PO BID #60 tab 08/03/16 (*)] Losartan/Hydrochlorothiazide 1 each PO DAILY 08/22/16 [Hyzaar 100-12.5 Tablet] Departure - Departure Disposition: [facility] Acute Clinical Impression: Pancreatitis Qualifiers: Chronicity: acute Pancreatitis type: alcohol induced Acute pancreatitis complication: unspecified Qualified Code(s): K85.20 - Alcohol induced acute pancreatitis without necrosis or infection Condition: Good Report Scribed for: Srikanth Estes Report Scribed by: Adriana Villanueva Date of Report: 08/22/16 Time of Report: 18:41 Physician Review and Approval Statement: Portions of this note were transcribed by an ED scribe. I personally performed the history, physical exam, and medical decision making; and confirm the accuracy of the information in the transcribed note.
[2016-08-22] MEDS ORDERED: HYDROmorphONE/DILAUDID 1 MG/ML SYR IVP ONE (19:00)
[2016-08-22 19:06] LABS: INR 0.9 (0.83-1.16)
[2016-08-22 19:07] LABS: % IMMATURE GRANULYOCYTES 0.6 % (0.0-1.1); ABSOLUTE IMMATURE GRANULOCYTES 0.09 10^3/uL (0.00-0.10); ADD DIFF? NO; ADD MORPH? NO; ADD SCAN? NO; APTT 24.2 SEC (23.0-38.0); ATYPICAL LYMPHOCYTE FLAG 0 (0-99); FRAGMENT RBC FLAG 0 (0-99); HEMATOCRIT 39.5 % (40.0-51.0); HEMOGLOBIN 13.4 g/dL (13.7-17.5); LEFT SHIFT FLG 0 (0-99); LIPEMIA HEMOLYSIS FLAG 90 (0-99); MEAN CELL HEMOGLOBIN 31.6 pg (27.9-34.1); MEAN CELL HEMOGLOBIN CONCENTR. 33.9 g/dL (32.4-36.7); MEAN CELL VOLUME 93.2 fL (81.5-99.8); MEAN PLATELET VOLUME 9.9 fL (8.7-11.7); PLATELET CLUMPS FLAG 0 (0-99); PLATELET COUNT 446 10^3/uL (150-400); RED BLOOD CELL COUNT 4.24 10^6/uL (4.40-6.38); RED CELL DISTRIBUTION WIDTH 13.1 % (11.5-15.2)
[2016-08-22 19:36] LABS: ALANINE AMINOTRANSFERASE 30 IU/L (21-72); ALBUMIN 4.7 g/dL (3.5-5.0); ALKALINE PHOSPHATASE 94 IU/L (38-126); ANION GAP 14 mEq/L (8-16); ASPARTATE AMINOTRANSFERASE 27 IU/L (17-59); BILIRUBIN,TOTAL 0.8 mg/dL (0.1-1.4); BILIRUBIN-CONJUGATED 0.6 mg/dL (0.0-0.5); BILIRUBIN-UNCONJUGATED 0.2 mg/dL (0.0-1.1); CALCIUM 10.9 mg/dL (8.5-10.4); CARBON DIOXIDE 19 mEq/l (22-31); CHLORIDE 99 mEq/L (97-110); CREATININE 0.8 mg/dL (0.7-1.3); GLOMERULAR FILTRATION RATE > 60; GLUCOSE 113 mg/dL (70-100); POTASSIUM 3.6 mEq/L (3.5-5.2); SODIUM 132 mEq/L (134-144); TOTAL PROTEIN 7.6 g/dL (6.3-8.2)
[2016-08-22] MEDS ORDERED: IOPAMIDOL (ISOVUE-300) 100 ML BTL IV ONE (20:02)
[2016-08-22] MEDS ORDERED: ONDANSETRON DISINTEGRATING 4 MG TAB PO PRN (20:36)
[2016-08-22] MEDS ORDERED: ACETAMINOPHEN 325 MG TAB PO PRN (20:36)
[2016-08-22] MEDS ORDERED: PROMETHAZINE HCL 25 MG/ML INJ IVP PRN (20:36)
[2016-08-22] MEDS ORDERED: ONDANSETRON 4 MG/2 ML VIAL IVP PRN (20:36)
--- NOTE | 2016-08-22 21:16 | GHP ---
[f rep st] HISTORY AND PHYSICAL DATE OF ADMISSION: 08/22/2016 HISTORY OF PRESENT ILLNESS: The patient is a pleasant 56-year-old gentleman with a history of recen t upper GI bleed secondary to gastric ulcer from NSAID use and alcohol, who presents with about a 2- day history of abdominal pain that began yesterday afternoon. He has not had a bowel movement in 3 days. He developed abdominal pain radiating to his bilateral back. He states he has only had 3 dri nks since his discharge from the hospital. He has ceased taking NSAIDS. He has had no black stool, no dark stool, no light stool. He still has his gallbladder. No history of cholelithiasis, althou gh his notes that he has a history of kidney stones. He has really had no appetite, unable to keep anything down. Not having fever, chills. He has some nausea. REVIEW OF SYSTEMS: Complete 10-point review of systems conducted, negative except as noted in the H PI. PAST MEDICAL HISTORY: 1. Recent upper GI bleed secondary to peptic ulcer. 2. Acute blood loss anemia. 3. Alcohol abuse. 4. Chronic pain with NSAID use, now not using NSAID. 5. Hypertension. ALLERGIES: No known drug allergies. MEDICATIONS: Protonix, losartan, Tylenol, aspirin. SOCIAL HISTORY: He smokes cigarettes. Drinks alcohol. present at bedside. FAMILY HISTORY: Father had pancreatitis. PHYSICAL EXAM: VITAL SIGNS: Temp 36.4, blood pressure 162/130, now 149/94, pulse 80, breathing 16 times a minute, 94% on room air. GENERAL: No acute distress. HEENT: Oropharynx clear. Poor dent ition. Mucous membranes are moist. NECK: Supple without lymphadenopathy or JVD. LUNGS: Clear to auscultation bilaterally. HEART: S1, S2. ABDOMEN: Soft. Bowel sounds are present, but hypoacti ve. There is no rebound or guarding. LOWER EXTREMITIES: Without edema. Calves are nontender. SK IN: Without rash. NEUROLOGIC: Nonfocal. LABS: Lipase of 6331, sodium 132, potassium 3.6, chloride 99, bicarb 19, BUN 8, creatinine 0.8, glu cose 113. LFTs: Conjugated bilirubin of 0.6, which is slightly high. Elevated lipase. Recent lab s include a negative H pylori. Normal coags. White count 15.8, hematocrit 39.5, platelets are 446, 000. Abdominal x-ray, interpreted by me, shows unremarkable, perhaps some constipation. I have discussed the case with Dr. Srikanth Estes in the Emergency Department. ASSESSMENT AND PLAN: A 56-year-old gentleman presents with pancreatitis. 1. Pancreatitis. I suspect the etiology is alcohol, though the amount of alcohol he endorses using would probably not be enough to cause pancreatitis. The ultrasound of his abdomen was being perfor med, showed some in and with a hydropic gallbladder. We may warrant a HIDA scan. For now, I will m gm him n.p.o., IV fluids, IV pain medicines and follow. 2. Blood loss anemia. His hematocrit appears to be rebounding nicely. We will continue his PPI. 3. Alcohol use. The patient sounds like he was able to cease alcohol. We will follow for signs of withdrawal and not place him on CIWA. 4. Prophylaxis. Pharmacologic prophylaxis indicated. Start low-molecular heparin. 5. Disposition: Inpatient status. /[id number]/MODL
[2016-08-22] MEDS: PANTOPRAZOLE SODIUM 40 MG in NS 100 ML IV SCH (21:21)
[2016-08-22] MEDS ORDERED: HYDROmorphONE/DILAUDID 2 MG/ML SYR IVP ONE (21:27)
[2016-08-22] MEDS: HYDROmorphONE/DILAUDID 1 MG/ML SYR IVP PRN (22:02)
[2016-08-22] MEDS: NS 1,000 ML IV SCH (22:02)
[2016-08-22] MEDS ORDERED: hydrALAZINE 20 MG/ML VIAL IVP PRN (22:44)
[2016-08-23] MEDS: NS 1,000 ML IV SCH ×4 (04:30→23:47)
[2016-08-23] MEDS: HYDROmorphONE/DILAUDID 1 MG/ML SYR IVP PRN ×6 (05:53→23:44)
[2016-08-23 06:06] LABS: % IMMATURE GRANULYOCYTES 0.6 % (0.0-1.1); ABSOLUTE IMMATURE GRANULOCYTES 0.07 10^3/uL (0.00-0.10); ADD DIFF? NO; ADD MORPH? NO; ADD SCAN? NO; ATYPICAL LYMPHOCYTE FLAG 0 (0-99); FRAGMENT RBC FLAG 0 (0-99); HEMATOCRIT 34.1 % (40.0-51.0); HEMOGLOBIN 11.4 g/dL (13.7-17.5); LEFT SHIFT FLG 0 (0-99); LIPEMIA HEMOLYSIS FLAG 80 (0-99); MEAN CELL HEMOGLOBIN 30.6 pg (27.9-34.1); MEAN CELL HEMOGLOBIN CONCENTR. 33.4 g/dL (32.4-36.7); MEAN CELL VOLUME 91.4 fL (81.5-99.8); MEAN PLATELET VOLUME 9.3 fL (8.7-11.7); PLATELET CLUMPS FLAG 0 (0-99); RED BLOOD CELL COUNT 3.73 10^6/uL (4.40-6.38); RED CELL DISTRIBUTION WIDTH 13.2 % (11.5-15.2)
[2016-08-23 06:22] LABS: ALANINE AMINOTRANSFERASE 28 IU/L (21-72); ALBUMIN 3.7 g/dL (3.5-5.0); ALKALINE PHOSPHATASE 69 IU/L (38-126); ANION GAP 8 mEq/L (8-16); ASPARTATE AMINOTRANSFERASE 21 IU/L (17-59); BILIRUBIN,TOTAL 0.7 mg/dL (0.1-1.4); CALCIUM 9.6 mg/dL (8.5-10.4); CARBON DIOXIDE 19 mEq/l (22-31); CHLORIDE 102 mEq/L (97-110); CREATININE 0.7 mg/dL (0.7-1.3); GLOMERULAR FILTRATION RATE > 60; GLUCOSE 94 mg/dL (70-100); POTASSIUM 3.8 mEq/L (3.5-5.2); SODIUM 129 mEq/L (134-144); TOTAL PROTEIN 6.3 g/dL (6.3-8.2)
[2016-08-23 06:24] LABS: PLATELET COUNT 370 10^3/uL (150-400)
--- NOTE | 2016-08-23 08:47 | HOSPPROG ---
Hospitalist Progress Note Assessment/Plan: #Acute abdominal pain: due to #Acute pancreatitis: due to Etoh, no gallstones on U/S. Lipase >6000, LFTs WNL -supportive care, IV opioids #Leukocytosis: due to inflammation. No e/o cholecystitis #Hypovolemic hyponatremia: due to decreased PO intake. Cont IVFs #Etoh use: says he has not drank in 3 weeks #Recent GIB due to peptic ulcer (Jul): PPI. FU with Dr. Good #Diet: NPO, ADAT when feeling hungry #DVT px: SCDs given recent GIB #Disp: warrants inpatient admission with acute pancreatitis, cont IV opioids, antiemetics Subjective: trialed sips of water this afternoon and had increased pain Objective: Vital Signs Temp Pulse Resp BP Pulse Ox 36.6 C 85 16 148/86 H 92 08/23/16 06:29 08/23/16 06:29 08/23/16 06:29 08/23/16 06:29 08/23/16 06:29 Laboratory Results 08/23/16 05:50 08/23/16 05:50 08/22/16 08/23/16 08/24/16 05:59 05:59 05:59 Intake Total 2275 Output Total 450 Balance 1825 PT 12.0 SEC (12.0-15.0) 08/22/16 18:33 INR 0.90 (0.83-1.16) 08/22/16 18:33 - Physical Exam Constitutional: no apparent distress Eyes: PERRL Ears, Nose, Mouth, Throat: moist mucous membranes, hearing normal Cardiovascular: regular rate and rhythym, no murmur, rub, or gallop Respiratory: no respiratory distress, no rales or rhonchi Gastrointestinal: normoactive bowel sounds, other (mild eipigastric, LLQ TTP, no rebound or guarding) Genitourinary: no bladder fullness Skin: warm Musculoskeletal: full muscle strength Neurologic: AAOx3 Psychiatric: interacting appropriately ICD10 Worksheet Patient Problems: Problems Problem Status Onset Pancreatitis Acute GIB (gastrointestinal bleeding) Acute Hypothermia Acute
[2016-08-23] MEDS: PANTOPRAZOLE SODIUM 40 MG in NS 100 ML IV SCH ×2 (10:25→19:48)
[2016-08-23] MEDS: ENOXAPARIN 40 MG/0.4 ML SYR SC SCH (10:25)
[2016-08-24] MEDS: HYDROmorphONE/DILAUDID 1 MG/ML SYR IVP PRN (05:28)
[2016-08-24 05:56] LABS: % IMMATURE GRANULYOCYTES 0.5 % (0.0-1.1); ABSOLUTE IMMATURE GRANULOCYTES 0.04 10^3/uL (0.00-0.10); ADD DIFF? NO; ADD MORPH? NO; ADD SCAN? NO; ATYPICAL LYMPHOCYTE FLAG 20 (0-99); FRAGMENT RBC FLAG 0 (0-99); HEMATOCRIT 28.5 % (40.0-51.0); HEMOGLOBIN 9.3 g/dL (13.7-17.5); LEFT SHIFT FLG 0 (0-99); LIPEMIA HEMOLYSIS FLAG 80 (0-99); MEAN CELL HEMOGLOBIN 30.9 pg (27.9-34.1); MEAN CELL HEMOGLOBIN CONCENTR. 32.6 g/dL (32.4-36.7); MEAN CELL VOLUME 94.7 fL (81.5-99.8); MEAN PLATELET VOLUME 9.9 fL (8.7-11.7); PLATELET CLUMPS FLAG 10 (0-99); PLATELET COUNT 262 10^3/uL (150-400); RED BLOOD CELL COUNT 3.01 10^6/uL (4.40-6.38); RED CELL DISTRIBUTION WIDTH 13.1 % (11.5-15.2)
[2016-08-24 06:15] LABS: ANION GAP 9 mEq/L (8-16); CALCIUM 9.3 mg/dL (8.5-10.4); CARBON DIOXIDE 17 mEq/l (22-31); CHLORIDE 107 mEq/L (97-110); CREATININE 0.7 mg/dL (0.7-1.3); GLOMERULAR FILTRATION RATE > 60; GLUCOSE 70 mg/dL (70-100); POTASSIUM 3.4 mEq/L (3.5-5.2); SODIUM 133 mEq/L (134-144)
[2016-08-24] MEDS: PANTOPRAZOLE SODIUM 40 MG in NS 100 ML IV SCH (10:13)
[2016-08-24] MEDS: NS 1,000 ML IV SCH (10:13)
[2016-08-24] MEDS: ENOXAPARIN 40 MG/0.4 ML SYR SC SCH (10:24)
[2016-08-24] MEDS ORDERED: oxyCODONE IR 5 MG TAB PO PRN (11:38)
[2016-08-24] MEDS: POTASSIUM Cl (KCl) 100 ML IV SCH ×2 (11:56→13:58)
--- NOTE | 2016-08-24 15:36 | HOSPPROG ---
Hospitalist Progress Note Assessment/Plan: #Acute abdominal pain: much improved #Acute pancreatitis: due to Etoh, no gallstones on U/S. Lipase >6000, LFTs WNL -supportive care, change to oral oxycodone #Leukocytosis: resolved #Hypovolemic hyponatremia: improved with IVFs #Etoh use: says he has not drank in 3 weeks #Recent GIB due to peptic ulcer (Jul): PPI. FU with Dr. Good #Diet: NPO, ADAT when feeling hungry #DVT px: SCDs given recent GIB #Disp: pt will eat lunch, if tolerates it he can DC home today Subjective: pain much improved. Tolerated clears this morning. Objective: Vital Signs Temp Pulse Resp BP Pulse Ox 36.5 C 90 17 159/89 H 96 08/24/16 12:05 08/24/16 12:05 08/24/16 12:05 08/24/16 12:05 08/24/16 12:05 Laboratory Results 08/24/16 05:26 08/24/16 05:26 08/23/16 08/24/16 08/25/16 05:59 05:59 05:59 Intake Total 2275 3000 Output Total 450 1650 300 Balance 1825 1350 -300 PT 12.0 SEC (12.0-15.0) 08/22/16 18:33 INR 0.90 (0.83-1.16) 08/22/16 18:33 - Physical Exam Constitutional: no apparent distress Eyes: PERRL Ears, Nose, Mouth, Throat: moist mucous membranes Cardiovascular: regular rate and rhythym, no murmur, rub, or gallop Respiratory: no respiratory distress, no rales or rhonchi Gastrointestinal: normoactive bowel sounds, other (mild abd on exam, much improved) Genitourinary: no bladder fullness Skin: warm Musculoskeletal: full muscle strength Neurologic: AAOx3 Psychiatric: interacting appropriately ICD10 Worksheet Patient Problems: Problems Problem Status Onset Pancreatitis Acute GIB (gastrointestinal bleeding) Acute Hypothermia Acute
[2016-08-24] MEDS ORDERED: POTASSIUM CL 20 MEQ TAB PO ONE (17:05)
[2016-08-24 17:15] VITALS: BP 164/93; PULSE 89; RESP 18; TEMP 97.6; O2SAT 98
--- NOTE | 2016-08-25 03:22 | GDS ---
[f rep st] DISCHARGE SUMMARY DISCHARGE DIAGNOSES: 1. Acute abdominal pain. 2. Acute pancreatitis. 3. Leukocytosis. 4. Hypovolemic hyponatremia. 5. Alcohol use. 6. Recent gastrointestinal bleed due to peptic ulcer disease. HPI: Patient is a pleasant 56-year-old male with history of recent upper GI bleed secondary to peptic ulcer disease from NSAID use and alcohol, who presents with 2 to 3 days of abdominal pain. It is significantly worse in his left lower quadrant, dull in nature, radiating to his back. He states he has only had 3 drinks since his discharge from the hospital in July. He is no longer taking NSAIDs. He has had no melena or bright red blood. There is a history of gallstones. He has had a persistent nausea and vomiting, and no appetite. HOSPITAL COURSE BY PROBLEM: 1. Acute abdominal pain: due to acute pancreatitis. Lipase is greater than 6000. He denies significant alcohol use, but this could be the cause. Ultrasound was negative for gallstones or acute cholecystitis. Not on any offending medications. Was treated supportively with IV fluids, antiemetics, and IV pain control. At the time of discharge, he was tolerating diet and using oxycodone. 2. Acute pancreatitis: Again, suspect secondary to alcohol. No evidence of gallstones. Pain improved quickly with supportive care. 3. Alcohol use. The patient was counseled on cessation. 4. Recent upper gastrointestinal bleed secondary to peptic ulcer disease: The patient is advised to minimize alcohol use and NSAIDs. Continue PPI. 5. Leukocytosis. White count mildly elevated. Suspect this is secondary to inflammation as he has been afebrile. No evidence of pseudocyst or cholecystitis. This has since resolved. 6. Hypovolemic hyponatremia: Secondary to emesis and decreased p.o. intake. This resolved quickly. DISPOSITION: Patient is stable for discharge. MEDICATIONS: P.r.n. oxycodone and Zofran. FOLLOWUP: Dr. Good with Gastroenterology. /[id number]/MODL MTDD
== END 2016-08-24 18:40 | disposition home or self-care (01) | DRG 439 ==
LOC: OBSVTOIN 20:36 → F1N 21:39
PROVIDERS: ADMIT Internal Medicine; ATTEND Internal Medicine
DX: K85.20 Alcohol induced acute pancreatitis without necrosis or infection (principal); E87.1 Hypo-osmolality and hyponatremia; E86.1 Hypovolemia; K27.9 Peptic ulcer, site unspecified, unspecified as acute or chronic, without hemorrhage or perforation; G89.29 Other chronic pain; I10 Essential (primary) hypertension; Z72.89 Other problems related to lifestyle
CPT/HCPCS: 96374; J0360; J1170; J1650; J2405; Q9967